=== PATIENT | female | born 1985 | race African-American/Black ===

== ENCOUNTER 2021-12-18 13:39 | Inpatient (IN) | payer OTHER ==
[2021-12-18] MEDS ORDERED: ONDANSETRON *ODT* 4 MG TABLET SL PRN (15:19)
[2021-12-18] MEDS ORDERED: LOPERAMIDE HCL 2 MG CAPSULE PO PRN (15:19)
[2021-12-18] MEDS ORDERED: MAGNESIUM CITRATE 300 ML BOTTLE PO PRN (15:19)
[2021-12-18] MEDS ORDERED: MAGNESIUM HYDROX 2400MG/30ML ORAL SUSPENSION 30 ML CUP PO PRN (15:19)
[2021-12-18] MEDS ORDERED: ACETAMINOPHEN 325 MG TABLET (FP) PO PRN (15:19)
[2021-12-18] MEDS ORDERED: DICYCLOMINE HCL 10 MG CAPSULE PO PRN (15:19)
[2021-12-18] MEDS ORDERED: BISMUTH SUBSALICYLATE 524 MG/30 ML PO PRN (15:19)
[2021-12-18] MEDS ORDERED: BENZOCAINE/MENTHOL (CHLORASEPTIC ) LOZENGE MM PRN (15:19)
[2021-12-18] MEDS ORDERED: MAG HYDROX/AL HYDROX/SIMETH 30 ML UNIT-DOSE CUP PO PRN (15:19)
[2021-12-18 17:38] VITALS: BMI 17.4
[2021-12-18] MEDS: diazePAM 5 MG TABLET PO SCH ×2 (18:53→22:41)
[2021-12-18] MEDS: hydrOXYzine PAMOATE 25 MG CAPSULE (FP) PO SCH ×2 (18:54→22:41)
[2021-12-18] MEDS: NICOTINE 10 MG CARTRIDGE (INHALER) IH PRN (19:05)
[2021-12-18] MEDS: METHOCARBAMOL 500 MG TABLET PO PRN (19:42)
[2021-12-18] MEDS: IBUPROFEN 400 MG TABLET (FP) PO PRN (20:31)
[2021-12-18] MEDS: PRENATAL VITAMINS W/ FOLIC ACID TABLET (FP) PO SCH (20:32)
[2021-12-18] MEDS: diazePAM 5 MG TABLET PO PRN (20:37)
[2021-12-18] MEDS ORDERED: MELATONIN 5 MG TABLETS PO SCH (22:00)
[2021-12-18] MEDS: THIAMINE HCL 100 MG TABLET (FP) PO SCH (22:41)
[2021-12-19] MEDS: diazePAM 5 MG TABLET PO PRN ×4 (01:49→20:15)
[2021-12-19] MEDS: METHOCARBAMOL 500 MG TABLET PO PRN ×4 (01:50→20:48)
[2021-12-19] MEDS: diazePAM 5 MG TABLET PO SCH ×4 (05:43→22:30)
[2021-12-19] MEDS: hydrOXYzine PAMOATE 25 MG CAPSULE (FP) PO SCH ×2 (05:43→10:05)
[2021-12-19] MEDS: ACETAMINOPHEN 325 MG TABLET (FP) PO PRN ×4 (05:45→23:34)
[2021-12-19] MEDS: IBUPROFEN 400 MG TABLET (FP) PO PRN ×3 (07:49→20:48)
[2021-12-19] MEDS: NICOTINE 14 MG/24 HOURS TOPICAL PATCH TD SCH (10:06)
[2021-12-19] MEDS: PRENATAL VITAMINS W/ FOLIC ACID TABLET (FP) PO SCH (10:06)
[2021-12-19] MEDS: NICOTINE 10 MG CARTRIDGE (INHALER) IH PRN ×2 (10:07→22:34)
[2021-12-19] MEDS: hydrOXYzine PAMOATE 50 MG CAPSULE (FP) PO PRN ×2 (13:38→20:19)
[2021-12-19 13:50] LABS: HEMATOCRIT 33.7 % (32.4-45.2); HEMOGLOBIN 10.9 GM/dL (10.7-15.3); MCH 28.7 pg (25.7-33.7); MCHC 32.3 g/dl (32.0-36.0); MEAN CELL VOLUME 88.6 fl (80-96); PLATELET COUNT 258 10^3/uL (134-434); RDW 16.2 % (11.6-15.6); WHITE BLOOD COUNT 4.7 K/mm3 (4.0-10.0)
[2021-12-19 14:38] LABS: ALBUMIN 3.7 g/dl (3.4-5.0); BLOOD UREA NITROGEN 9.8 mg/dL (7-18); CALCIUM 9.3 mg/dL (8.5-10.1)
[2021-12-19 14:41] LABS: CREATININE 0.6 mg/dL (0.55-1.3)
[2021-12-19 14:43] LABS: TOT PROT 7.4 g/dl (6.4-8.2)
[2021-12-19 14:54] LABS: BILIRUBIN,TOTAL 0.3 mg/dL (0.2-1)
[2021-12-19] MEDS: THIAMINE HCL 100 MG TABLET (FP) PO SCH (22:30)
[2021-12-19] MEDS: SUVOREXANT 10 MG TABLET PO PRN (22:33)
[2021-12-20] MEDS: hydrOXYzine PAMOATE 50 MG CAPSULE (FP) PO PRN ×5 (02:05→20:16)
[2021-12-20] MEDS: diazePAM 5 MG TABLET PO PRN ×2 (02:05→18:02)
[2021-12-20] MEDS: diazePAM 5 MG TABLET PO SCH ×3 (06:01→22:15)
[2021-12-20] MEDS: METHOCARBAMOL 500 MG TABLET PO PRN ×3 (06:01→22:15)
[2021-12-20] MEDS: IBUPROFEN 400 MG TABLET (FP) PO PRN ×2 (06:02→18:00)
[2021-12-20] MEDS: PRENATAL VITAMINS W/ FOLIC ACID TABLET (FP) PO SCH (10:52)
[2021-12-20] MEDS: NICOTINE 14 MG/24 HOURS TOPICAL PATCH TD SCH (10:52)
[2021-12-20] MEDS: ACETAMINOPHEN 325 MG TABLET (FP) PO PRN (10:53)
[2021-12-20] MEDS: NICOTINE 10 MG CARTRIDGE (INHALER) IH PRN ×2 (18:02→22:17)
[2021-12-20] MEDS: SUVOREXANT 10 MG TABLET PO PRN (22:15)
[2021-12-20] MEDS: THIAMINE HCL 100 MG TABLET (FP) PO SCH (22:15)
[2021-12-21 00:11] LABS: SARS-CoV-2 NAA Not Detected (Not Detected)
[2021-12-21] MEDS: diazePAM 5 MG TABLET PO PRN ×3 (01:18→13:09)
[2021-12-21] MEDS: IBUPROFEN 400 MG TABLET (FP) PO PRN ×2 (01:19→11:19)
[2021-12-21] MEDS: hydrOXYzine PAMOATE 50 MG CAPSULE (FP) PO PRN ×5 (01:19→22:19)
[2021-12-21] MEDS: ACETAMINOPHEN 325 MG TABLET (FP) PO PRN ×2 (03:22→08:38)
[2021-12-21] MEDS: diazePAM 5 MG TABLET PO SCH ×2 (05:57→18:03)
[2021-12-21] MEDS: METHOCARBAMOL 500 MG TABLET PO PRN ×3 (05:58→19:37)
[2021-12-21] MEDS: NICOTINE 14 MG/24 HOURS TOPICAL PATCH TD SCH (11:10)
[2021-12-21] MEDS: PRENATAL VITAMINS W/ FOLIC ACID TABLET (FP) PO SCH (11:10)
[2021-12-21] MEDS: NICOTINE 10 MG CARTRIDGE (INHALER) IH PRN ×3 (12:18→22:19)
[2021-12-21] MEDS ORDERED: traZODone HCL 50 MG TABLET (FP) PO SCH (22:00)
[2021-12-21] MEDS: THIAMINE HCL 100 MG TABLET (FP) PO SCH (22:19)
[2021-12-22] MEDS: METHOCARBAMOL 500 MG TABLET PO PRN (02:13)
[2021-12-22] MEDS: ACETAMINOPHEN 325 MG TABLET (FP) PO PRN (02:13)
[2021-12-22] MEDS: hydrOXYzine PAMOATE 50 MG CAPSULE (FP) PO PRN ×2 (02:13→09:18)
[2021-12-22] MEDS: NICOTINE 10 MG CARTRIDGE (INHALER) IH PRN ×2 (02:15→07:57)
[2021-12-22] MEDS: IBUPROFEN 400 MG TABLET (FP) PO PRN (05:28)
[2021-12-22] MEDS ORDERED: diazePAM 5 MG TABLET PO ONE (06:00)
[2021-12-22 09:14] VITALS: BP 142/96; PULSE 86; TEMP 98.1
[2021-12-22] MEDS: PRENATAL VITAMINS W/ FOLIC ACID TABLET (FP) PO SCH (09:19)
[2021-12-22] MEDS: NICOTINE 14 MG/24 HOURS TOPICAL PATCH TD SCH (09:19)
== END 2021-12-22 09:34 | disposition home or self-care (01) | DRG 775 ==
LOC: YASAS 13:39 → Y3N 17:34
PROVIDERS: ADMIT Allergy & Immunology; ATTEND Surgery
PROC: HZ2ZZZZ Detoxification Services for Substance Abuse Treatment (ICD-10-PCS; principal; 2021-12-18)
DX: F10.230 Alcohol dependence with withdrawal, uncomplicated (principal); F17.210 Nicotine dependence, cigarettes, uncomplicated; F10.24 Alcohol dependence with alcohol-induced mood disorder
CPT/HCPCS: 36415; 80053; 81025; 85027; 86780; 93005; 93010; C9803-CS; U0003; U0005